=== PATIENT | female | born 1980 | race Caucasian/White ===

== ENCOUNTER → 2016-11-19 | Outpatient (CLI) | payer OTHER ==
[2016-11-19 11:01] LABS: CH 27.3; HDW 2.48; HGB 12.2 gm/dL (11.4-16.0); MCH 28.2 pg (25.0-35.0); MCHC 32.9 g/dL (31.0-37.0); MCV 85.8 fL (80.0-100.0); Mean Platelet Volume 8.4; RBC 4.31 m/uL (3.80-5.40); RDW 15.2 % (11.5-15.5); WBC 7.7 k/uL (3.8-10.6)
[2016-11-19 13:59] LABS: % Iron Saturation 5.9 % (20-50)
== END | disposition home or self-care (01) ==
LOC: LABWHC1 10:25
PROVIDERS: ATTEND Obstetrics & Gynecology
DX: N93.8 Other specified abnormal uterine and vaginal bleeding (principal)
CPT/HCPCS: 36415; 82728; 83540; 83550; 84439; 84443; 85027

== ENCOUNTER 2016-11-27 16:24 | Emergency (ER) | payer OTHER ==
[2016-11-27] MEDS ORDERED: SODIUM CHLORIDE 0.9% 1,000 ML IV ONE (17:28)
[2016-11-27] MEDS ORDERED: ONDANSETRON 4 MG/2 ML VIAL IVP STA (17:28)
[2016-11-27] MEDS ORDERED: diphenhydrAMINE 50 MG/ML 1 ML VIAL IVP STA (17:37)
[2016-11-27] MEDS ORDERED: METOCLOPRAMIDE 5 MG/ML 2 ML VIAL IVP STA (17:37)
[2016-11-27] MEDS ORDERED: KETOROLAC 30 MG/ML 1 ML VIAL IVP STA (17:37)
[2016-11-27 18:34] LABS: Basophils % (A) 1 %; CH 27.1; CHCM 32.7; Eosinophils # (A) 0.2 k/uL (0-0.7); Eosinophils % (A) 3 %; HCT 33.3 % (34.0-46.0); HDW 2.47; Luc # (Auto) 0.16; Luc % (Auto) 2; Lymphocytes # (A) 1.6 k/uL (1.0-4.8); Lymphocytes % (A) 21 %; MCH 27.7 pg (25.0-35.0); MCHC 33.1 g/dL (31.0-37.0); MCV 83.5 fL (80.0-100.0); Mean Platelet Volume 8.3; Monocytes # (A) 0.5 k/uL (0-1.0); Monocytes % (A) 7 %; Neutrophils # (A) 4.9 k/uL (1.3-7.7); Neutrophils % (A) 67 %; RBC 3.98 m/uL (3.80-5.40); RDW 15.1 % (11.5-15.5); WBC 7.4 k/uL (3.8-10.6); WBC (Perox) 7.38
[2016-11-27 18:56] LABS: Anion Gap 12 mmol/L; Blood Urea Nitrogen 16 mg/dL (7-17); Carbon Dioxide 22 mmol/L (22-30); Chloride 107 mmol/L (98-107); Glucose 91 mg/dL (74-99); Non-African American GFR(MDRD) >60 (>60 ml/min/1.73 sqM); Potassium 4.1 mmol/L (3.5-5.1); Sodium 141 mmol/L (137-145)
--- NOTE | 2016-11-27 19:18 | ED ---
Headache HPI - General Chief Complaint: Headache Stated Complaint: Dizziness/Heart Palpitations Mode of arrival: ambulatory Limitations: no limitations - History of Present Illness Initial Comments: 36-year-old female presented for evaluation of headache. She states that her symptoms started today after she donated blood. She also states having associated lightheadedness and mild dizziness. She is currently on her period and she states that she has normal heavy flow. She has chronic anemia which was the necessity for drying her labs. She also states associated nausea. She denies chest pain, shortness breath, syncope, fevers, chills, abnormal menses, dysuria, constipation, diarrhea. - Related Data Home Medications Medication Instructions Recorded Confirmed Dextroamphetamine/Amphetamine 5 mg PO DAILY 11/27/16 11/27/16 [Adderall] Dextroamphetamine/Amphetamine 30 mg PO DAILY 11/27/16 11/27/16 [Adderall] Allergies Allergy/AdvReac Type Severity Reaction Status Date / Time No Known Allergies Allergy Verified 11/27/16 16:35 Review of Systems ROS Statement: Those systems with pertinent positive or pertinent negative responses have been documented in the HPI. ROS Other: All systems not noted in ROS Statement are negative. Constitutional: Denies: fever, chills Eyes: Denies: eye pain, eye discharge, vision change ENT: Denies: ear pain, throat pain, dental pain Respiratory: Denies: cough, dyspnea, wheezes Cardiovascular: Denies: chest pain, palpitations, syncope Endocrine: Denies: fatigue, polydipsia, polyuria Gastrointestinal: Reports: nausea. Denies: abdominal pain, vomiting, diarrhea, constipation, hematemesis, melena, hematochezia Genitourinary: Reports: other (Currently on her period). Denies: urgency, dysuria, hematuria, discharge, abnormal menses Musculoskeletal: Denies: back pain, arthralgia, myalgia Skin: Denies: rash, lesions Neurological: Reports: headache. Denies: weakness, numbness Psychiatric: Denies: anxiety, depression Hematological/Lymphatic: Denies: easy bleeding, easy bruising Past Medical History Additional Past Medical History / Comment(s): anemia History of Any Multi-Drug Resistant Organisms: None Reported Additional Past Surgical History / Comment(s): breast augmentation Past Psychological History: ADD/ADHD Smoking Status: Never smoker Past Alcohol Use History: Rare Past Drug Use History: None Reported General Exam Limitations: no limitations General appearance: alert, in no apparent distress Head exam: Present: atraumatic, normocephalic, normal inspection Eye exam: Present: normal appearance, PERRL, EOMI. Absent: scleral icterus, conjunctival injection, periorbital swelling ENT exam: Present: normal exam, mucous membranes moist Neck exam: Present: normal inspection. Absent: tenderness, meningismus, lymphadenopathy Respiratory exam: Present: normal lung sounds bilaterally. Absent: respiratory distress, wheezes, rales, rhonchi, stridor Cardiovascular Exam: Present: regular rate, normal rhythm, normal heart sounds. Absent: systolic murmur, diastolic murmur, rubs, gallop, clicks GI/Abdominal exam: Present: soft, normal bowel sounds. Absent: distended, tenderness, guarding, rebound, rigid Rectal exam: Present: deferred Extremities exam: Present: normal inspection, full ROM, normal capillary refill. Absent: tenderness, pedal edema, joint swelling, calf tenderness Back exam: Present: normal inspection Neurological exam: Present: alert, oriented X3, CN II-XII intact Psychiatric exam: Present: normal affect, normal mood Skin exam: Present: warm, dry, intact, normal color. Absent: rash Course Vital Signs 11/27/16 11/27/16 11/27/16 16:33 18:45 19:32 Temperature 97.5 F L 98.8 F Pulse Rate 90 73 77 Respiratory 20 20 16 Rate Blood Pressure 167/91 152/91 130/76 O2 Sat by Pulse 99 98 97 Oximetry Medical Decision Making - Medical Decision Making 36-year-old female presented for evaluation of headache, lightheadedness, nausea following blood draw today. She gets a blood draws due to her anemia. She also states that she is currently on her period and has been having heavy flow but this is at her baseline. On physical examination there are no acute abnormalities noted and she has cranial nerves II through XII intact without focal neurologic deficit with normal gait and station. Remainder of the physical exam is benign. Labs obtained revealed no significant abnormalities and after providing patient with Reglan, Toradol, Benadryl, and IV fluids the patient was reevaluated and had resolution of all symptoms. She was informed of all results and that she should follow up with her primary care physician. Discharge instructions and return instructions provided. Patient acknowledged an understanding of all information provided and agreed with this plan of care. - Lab Data Result diagrams: 11/27/16 18:17 11/27/16 18:17 Lab Results 11/27/16 11/27/16 Range/Units 18:17 18:17 WBC 7.4 (3.8-10.6) k/uL RBC 3.98 (3.80-5.40) m/uL Hgb 11.0 L (11.4-16.0) gm/dL Hct 33.3 L (34.0-46.0) % MCV 83.5 (80.0-100.0) fL MCH 27.7 (25.0-35.0) pg MCHC 33.1 (31.0-37.0) g/dL RDW 15.1 (11.5-15.5) % Plt Count 325 (150-450) k/uL Neutrophils % 67 % Lymphocytes % 21 % Monocytes % 7 % Eosinophils % 3 % Basophils % 1 % Neutrophils # 4.9 (1.3-7.7) k/uL Lymphocytes # 1.6 (1.0-4.8) k/uL Monocytes # 0.5 (0-1.0) k/uL Eosinophils # 0.2 (0-0.7) k/uL Basophils # 0.0 (0-0.2) k/uL Sodium 141 (137-145) mmol/L Potassium 4.1 (3.5-5.1) mmol/L Chloride 107 (98-107) mmol/L Carbon Dioxide 22 (22-30) mmol/L Anion Gap 12 mmol/L BUN 16 (7-17) mg/dL Creatinine 0.70 (0.52-1.04) mg/dL Est GFR (MDRD) Af Amer >60 (>60 ml/min/1.73 sqM) Est GFR (MDRD) Non-Af >60 (>60 ml/min/1.73 sqM) Glucose 91 (74-99) mg/dL Calcium 10.0 (8.4-10.2) mg/dL Disposition Clinical Impression: Headache Disposition: HOME SELF-CARE Condition: Stable Instructions: Acute Headache (ED) Referrals: Adam De Souza MD [Primary Care Provider] - 1-2 days Time of Disposition: 19:18
[2016-11-27 19:33] VITALS: BP 130/76; PULSE 77; RESP 16; TEMP 98.8
== END 2016-11-27 19:32 | disposition home or self-care (01) ==
LOC: EC 16:24
DX: R51 Headache (principal); R42 Dizziness and giddiness; R11.0 Nausea; F90.9 Attention-deficit hyperactivity disorder, unspecified type; Z79.899 Other long term (current) drug therapy
CPT/HCPCS: 99283; 96374; 96375 ×2; 96361; 36415; 80048; 85025; J1200; J2765; J1885

== ENCOUNTER → 2016-12-02 | Outpatient (CLI) | payer OTHER ==
--- NOTE | 2016-12-02 13:01 | CT ---
EXAMINATION TYPE: CT abdomen pelvis w con DATE OF EXAM: 12/02/2016 COMPARISON: NONE HISTORY: Patient complains of weakness, dizziness, and possible anemia. Patient denies abdominal/pelv ic complaints at time of study. CT DLP: 346.2 mGycm Automated exposure control for dose reduction was used. CONTRAST: CT scan of the abdomen pelvis is performed with IV Contrast, patient injected with 100 mL of Omnipaqu e 300. FINDINGS- LUNG BASES- No significant abnormality is appreciated. LIVER/GB- No gross abnormality is appreciated. PANCREAS- No gross abnormality is seen. SPLEEN- No gross abnormality is seen. ADRENALS- No gross abnormality is seen. KIDNEYS/BLADDER- no hydronephrosis nephrolithiasis or renal mass. BOWEL- no bowel dilatation. Extent visualized. Colon decompressed and limited in assessment. LYMPH NODES- No greater than 1cm abdominal or pelvic lymph nodes areappreciated. OSSEOUS STRUCTURES- No significant abnormality is seen. OTHER- intrauterine device noted IMPRESSION- 1. No acute process.
== END | disposition home or self-care (01) ==
LOC: RADCTMAIN 10:30
PROVIDERS: ATTEND Family Medicine
DX: R10.9 Unspecified abdominal pain (principal); R10.2 Pelvic and perineal pain
CPT/HCPCS: 74177; Q9967

== ENCOUNTER 2016-12-04 11:03 | Emergency (ER) | payer OTHER ==
[2016-12-04 11:16] VITALS: RESP 18
--- NOTE | 2016-12-04 12:06 | ED ---
General Adult HPI - General Chief complaint: Dizziness Stated complaint: Anemia Time Seen by Provider: 12/04/16 11:42 Source: patient Mode of arrival: EMS Limitations: no limitations - History of Present Illness Initial comments: Patient is a 36-year-old female who presents to the ED via EMS for evaluation of generalized fatigue, lightheaded dizziness and shaking all over. Patient states that 2 weeks ago she began feeling fatigued, she was evaluated in the ER 1 week ago and was diagnosed with anemia. Patient states her hemoglobin at that time was 11 and she was prescribed iron supplementation. Patient states she followed up with her primary care physician had additional labs including a thyroid study which was normal. Patient states that she began taking iron supplementation and for couple days felt a little bit better. A she attempted to go back to work but while at work began feeling very weak and lightheaded. She drove herself to her doctor's office but upon arrival felt very shaky and overall weakness he advised her to come to the emergency department for further evaluation. Patient denies any fevers, chills, heat or cold intolerance, weight change, night sweats. She reports that today she did feel mildly short of breath and experienced some palpitations however she denies any chest pain or exertional symptoms. Patient has no history of DVT or PE, no known family history. She is not on oral contraceptive pills, she is not a smoker, she has no recent long distant travel. She denies any edema in her legs. She has no cardiac history. Patient's family history is concerning for a father who of complications due to a stroke at the age of 63 and a mother who of metastatic breast cancer age of 45. - Related Data Home Medications Medication Instructions Recorded Confirmed Dextroamphetamine/Amphetamine 5 mg PO DAILY 11/27/16 12/04/16 [Adderall] Dextroamphetamine/Amphetamine 30 mg PO DAILY 11/27/16 12/04/16 [Adderall] ALPRAZolam [Xanax] 1 mg PO HS PRN 12/04/16 12/04/16 Ferrous Sulfate [Feosol] 325 mg PO DAILY 12/04/16 12/04/16 Ondansetron Odt [Zofran Odt] 4 mg PO Q12HR PRN 12/04/16 12/04/16 valACYclovir [Valtrex] 500 mg PO DAILY 12/04/16 12/04/16 Allergies Allergy/AdvReac Type Severity Reaction Status Date / Time No Known Allergies Allergy Verified 12/04/16 11:25 Review of Systems ROS Statement: Those systems with pertinent positive or pertinent negative responses have been documented in the HPI. ROS Other: All systems not noted in ROS Statement are negative. Constitutional: Reports: weakness (generalized). Denies: fever, chills, weight change, night sweats Eyes: Denies: vision change ENT: Denies: epistaxis Respiratory: Reports: dyspnea. Denies: cough, wheezes, hemoptysis Cardiovascular: Reports: palpitations. Denies: chest pain, orthopnea, edema, syncope Gastrointestinal: Denies: abdominal pain, nausea, vomiting, diarrhea, constipation, hematemesis, melena, hematochezia Genitourinary: Denies: urgency, dysuria Musculoskeletal: Denies: back pain Skin: Denies: rash, lesions, change in color Neurological: Reports: weakness (generalized), confusion (feels "slowed" mentation ). Denies: headache, paresthesias, abnormal gait, vertigo Psychiatric: Reports: anxiety. Denies: auditory hallucinations, visual hallucinations Hematological/Lymphatic: Denies: easy bleeding, easy bruising, swollen glands Past Medical History Past Medical History: Hyperlipidemia Additional Past Medical History / Comment(s): anemia History of Any Multi-Drug Resistant Organisms: None Reported Additional Past Surgical History / Comment(s): breast augmentation Past Psychological History: ADD/ADHD Smoking Status: Never smoker Past Alcohol Use History: Rare Past Drug Use History: None Reported General Exam Limitations: no limitations General appearance: alert, in no apparent distress Head exam: Present: atraumatic, normocephalic, normal inspection Eye exam: Present: normal appearance, PERRL, EOMI. Absent: scleral icterus, conjunctival injection, periorbital swelling ENT exam: Present: normal exam, mucous membranes moist Neck exam: Present: normal inspection. Absent: tenderness, meningismus, lymphadenopathy Respiratory exam: Present: normal lung sounds bilaterally. Absent: respiratory distress, wheezes, rales, rhonchi, stridor Cardiovascular Exam: Present: normal rhythm, tachycardia, normal heart sounds. Absent: systolic murmur, diastolic murmur, rubs, gallop, clicks GI/Abdominal exam: Present: soft, normal bowel sounds. Absent: distended, tenderness, guarding, rebound, rigid Rectal exam: Present: deferred Extremities exam: Present: normal inspection, full ROM, normal capillary refill , other (warm well perfused, no edema, strong radial and DP/PT pulses). Absent : tenderness, pedal edema, joint swelling, calf tenderness Back exam: Present: normal inspection Neurological exam: Present: alert, oriented X3, CN II-XII intact Psychiatric exam: Present: flat affect Skin exam: Present: warm, dry, intact, normal color. Absent: rash Course Vital Signs 12/04/16 12/04/16 12/04/16 11:12 12:16 12:58 Temperature 97.5 F L Pulse Rate 109 H 95 102 H Respiratory 18 18 18 Rate Blood Pressure 167/96 161/90 161/90 O2 Sat by Pulse 97 99 99 Oximetry 12/04/16 12/04/16 12/04/16 13:56 14:10 14:29 Temperature 98.3 F 98.3 F Pulse Rate 90 93 93 Respiratory 18 18 18 Rate Blood Pressure 154/91 142/81 142/81 O2 Sat by Pulse 98 98 98 Oximetry - Reevaluation(s) Reevaluation #1: Patient was reevaluated, heart rate improved to 90. Oxygen saturation 100% on room air. Patient remains mildly hypertensive with blood pressure 160 systolic. Laboratory discussed with the patient who states relief that her anemia is improving but does feel that she is getting worse. Paged patient's PCP for further discussion of patient care 12/04/16 13:18 Reevaluation #2: Patient care was discussed with patient's PCP who recommends a urine drug screen be obtained, he agrees with discharge home with plan for follow-up with PCP as well as neurology referral. PCP will be available for walk-in appointments from noon to 8 PM tomorrow and all day Thursday and Thursday. Patient was advised this. 12/04/16 13:49 EKG Findings - EKG Results: EKG: interpreted by LEONEL GILLESPIE, sinus rhythm, normal axis, normal QRS, normal ST/ T, no acute changes Medical Decision Making - Medical Decision Making Patient was seen and evaluated, history obtained from patient and medical record Labs, EKG ordered EKG normal sinus rhythm with no acute findings Labs with improved hemoglobin 12.1, no further anemia No other acute findings on laboratory evaluation Laboratory results were discussed with the patient as well as her primary care physician. Patient expressing concern that there is been no definitive diagnosis of why she is feeling fatigued. I discussed with the patient's primary care physician who expresses concern that this may be related to psychiatric or toxicologic phenomenon. He requested a urine drug screen be obtained. Urine drug screen was ordered I again discussed with the patient all of her findings. All questions pertaining To care were answered to the best of my abilities. I advised the patient that there was nothing identified in the emergency department workup that indicates any indication for admission to the hospital or requiring any and immediate or emergent interventions. Patient expresses a level of disappointment in not having a diagnosis, however she is agreeable for plan with discharge with follow-up with her primary care physician. I advised her that her primary care physician will see her anytime this weekend. Primary care physician is at office from noon until 8 PM tomorrow as well as over the weekend. - Lab Data Result diagrams: 12/04/16 12:15 12/04/16 12:15 Lab Results 12/04/16 12/04/16 12/04/16 Range/Units 12:15 12:15 12:15 WBC 6.5 (3.8-10.6) k/uL RBC 4.33 (3.80-5.40) m/uL Hgb 12.1 (11.4-16.0) gm/dL Hct 36.8 (34.0-46.0) % MCV 85.0 (80.0-100.0) fL MCH 27.9 (25.0-35.0) pg MCHC 32.8 (31.0-37.0) g/dL RDW 15.9 H (11.5-15.5) % Plt Count 357 (150-450) k/uL Neutrophils % 70 % Lymphocytes % 21 % Monocytes % 6 % Eosinophils % 2 % Basophils % 1 % Neutrophils # 4.5 (1.3-7.7) k/uL Lymphocytes # 1.4 (1.0-4.8) k/uL Monocytes # 0.4 (0-1.0) k/uL Eosinophils # 0.1 (0-0.7) k/uL Basophils # 0.0 (0-0.2) k/uL PT 11.6 (9.0-12.0) sec INR 1.2 H (<1.2) APTT 22.3 (22.0-30.0) sec D-Dimer 0.30 (<0.60) mg/L FEU Sodium 140 (137-145) mmol/L Potassium 4.4 (3.5-5.1) mmol/L Chloride 104 (98-107) mmol/L Carbon Dioxide 27 (22-30) mmol/L Anion Gap 9 mmol/L BUN 14 (7-17) mg/dL Creatinine 0.77 (0.52-1.04) mg/dL Est GFR (MDRD) Af Amer >60 (>60 ml/min/1.73 sqM) Est GFR (MDRD) Non-Af >60 (>60 ml/min/1.73 sqM) Glucose 90 (74-99) mg/dL Calcium 9.9 (8.4-10.2) mg/dL Magnesium 1.7 (1.6-2.3) mg/dL Urine Color Urine Appearance (Clear) Urine pH (5.0-8.0) Ur Specific [place] (1.001-1.035) Urine Protein (Negative) Urine Glucose (UA) (Negative) Urine Ketones (Negative) Urine Blood (Negative) Urine Nitrite (Negative) Urine Bilirubin (Negative) Urine Urobilinogen (<2.0) mg/dL Ur Leukocyte Esterase (Negative) Urine RBC (0-5) /hpf Urine WBC (0-5) /hpf Ur Squamous Epith Cells (0-4) /hpf Urine Bacteria (None) /hpf Urine Mucus (None) /hpf Urine HCG, Qual (Not Detectd) Urine Opiates Screen (NotDetected) Ur Oxycodone Screen (NotDetected) Urine Methadone Screen (NotDetected) Ur Propoxyphene Screen (NotDetected) Ur Barbiturates Screen (NotDetected) U Tricyclic Antidepress (NotDetected) Ur Phencyclidine Scrn (NotDetected) Ur Amphetamines Screen (NotDetected) U Methamphetamines Scrn (NotDetected) U Benzodiazepines Scrn (NotDetected) Urine Cocaine Screen (NotDetected) U Marijuana (THC) Screen (NotDetected) 12/04/16 12/04/16 12/04/16 Range/Units 12:15 12:15 12:15 WBC (3.8-10.6) k/uL RBC (3.80-5.40) m/uL Hgb (11.4-16.0) gm/dL Hct (34.0-46.0) % MCV (80.0-100.0) fL MCH (25.0-35.0) pg MCHC (31.0-37.0) g/dL RDW (11.5-15.5) % Plt Count (150-450) k/uL Neutrophils % % Lymphocytes % % Monocytes % % Eosinophils % % Basophils % % Neutrophils # (1.3-7.7) k/uL Lymphocytes # (1.0-4.8) k/uL Monocytes # (0-1.0) k/uL Eosinophils # (0-0.7) k/uL Basophils # (0-0.2) k/uL PT (9.0-12.0) sec INR (<1.2) APTT (22.0-30.0) sec D-Dimer (<0.60) mg/L FEU Sodium (137-145) mmol/L Potassium (3.5-5.1) mmol/L Chloride (98-107) mmol/L Carbon Dioxide (22-30) mmol/L Anion Gap mmol/L BUN (7-17) mg/dL Creatinine (0.52-1.04) mg/dL Est GFR (MDRD) Af Amer (>60 ml/min/1.73 sqM) Est GFR (MDRD) Non-Af (>60 ml/min/1.73 sqM) Glucose (74-99) mg/dL Calcium (8.4-10.2) mg/dL Magnesium (1.6-2.3) mg/dL Urine Color Light Yellow Urine Appearance Clear (Clear) Urine pH 7.5 (5.0-8.0) Ur Specific [place] 1.006 (1.001-1.035) Urine Protein Negative (Negative) Urine Glucose (UA) Negative (Negative) Urine Ketones Negative (Negative) Urine Blood Negative (Negative) Urine Nitrite Negative (Negative) Urine Bilirubin Negative (Negative) Urine Urobilinogen <2.0 (<2.0) mg/dL Ur Leukocyte Esterase Moderate H (Negative) Urine RBC <1 (0-5) /hpf Urine WBC 7 H (0-5) /hpf Ur Squamous Epith Cells 4 (0-4) /hpf Urine Bacteria Rare H (None) /hpf Urine Mucus Rare H (None) /hpf Urine HCG, Qual Not Detected (Not Detectd) Urine Opiates Screen Not Detected (NotDetected) Ur Oxycodone Screen Not Detected (NotDetected) Urine Methadone Screen Not Detected (NotDetected) Ur Propoxyphene Screen Not Detected (NotDetected) Ur Barbiturates Screen Not Detected (NotDetected) U Tricyclic Antidepress Not Detected (NotDetected) Ur Phencyclidine Scrn Not Detected (NotDetected) Ur Amphetamines Screen Detected H (NotDetected) U Methamphetamines Scrn Not Detected (NotDetected) U Benzodiazepines Scrn Detected H (NotDetected) Urine Cocaine Screen Not Detected (NotDetected) U Marijuana (THC) Screen Not Detected (NotDetected) Disposition Clinical Impression: Fatigue Disposition: HOME SELF-CARE Instructions: Fatigue (ED) Referrals: Adam De Souza MD [Primary Care Provider] - 1-2 days Rohan Watson MD [STAFF PHYSICIAN] - 1-2 days Time of Disposition: 14:11
[2016-12-04 12:30] LABS: Basophils % (A) 1 %; CH 27.5; CHCM 32.5; Eosinophils # (A) 0.1 k/uL (0-0.7); Eosinophils % (A) 2 %; HCT 36.8 % (34.0-46.0); HDW 2.27; HGB 12.1 gm/dL (11.4-16.0); Luc # (Auto) 0.08; Luc % (Auto) 1; Lymphocytes # (A) 1.4 k/uL (1.0-4.8); Lymphocytes % (A) 21 %; MCH 27.9 pg (25.0-35.0); MCHC 32.8 g/dL (31.0-37.0); Mean Platelet Volume 7.5; Monocytes # (A) 0.4 k/uL (0-1.0); Monocytes % (A) 6 %; Neutrophils # (A) 4.5 k/uL (1.3-7.7); Neutrophils % (A) 70 %; RBC 4.33 m/uL (3.80-5.40); RDW 15.9 % (11.5-15.5); WBC 6.5 k/uL (3.8-10.6); WBC (Perox) 6.87
[2016-12-04 12:33] LABS: Appearance,Urine Clear (Clear); Bacteria,Urine Rare /hpf; Bilirubin,Urine Negative (Negative); Glucose,Urine (UA) Negative (Negative); Ketones,Urine Negative (Negative); Leukocyte Esterase,Urine Moderate (Negative); Mucus,Urine Rare /hpf; Nitrite,Urine Negative (Negative); PH, Urine 7.5 (5.0-8.0); Particle Count 4001; Protein,Urine Negative (Negative); RBC,Urine <1 /hpf (0-5); Specific Gravity,Urine 1.006 (1.001-1.035); Squamous Epithelial Cell,Urine 4 /hpf (0-4); UA Billing (MACRO vs. MICRO) MICRO; Urobilinogen,Urine <2.0 mg/dL (<2.0); WBC,Urine 7 /hpf (0-5)
[2016-12-04 12:38] LABS: Anion Gap 9 mmol/L; Blood Urea Nitrogen 14 mg/dL (7-17); Calcium 9.9 mg/dL (8.4-10.2); Carbon Dioxide 27 mmol/L (22-30); Chloride 104 mmol/L (98-107); Glucose 90 mg/dL (74-99); Magnesium 1.7 mg/dL (1.6-2.3); Non-African American GFR(MDRD) >60 (>60 ml/min/1.73 sqM); Potassium 4.4 mmol/L (3.5-5.1); Sodium 140 mmol/L (137-145)
[2016-12-04 13:00] LABS: INR 1.2 (<1.2); Partial Thromboplastin Time 22.3 sec (22.0-30.0); Prothrombin Time 11.6 sec (9.0-12.0)
[2016-12-04 14:12] VITALS: BP 142/81; PULSE 93; TEMP 98.3
== END 2016-12-04 14:29 | disposition home or self-care (01) ==
LOC: EC 11:03
DX: R53.83 Other fatigue (principal); D64.9 Anemia, unspecified; F90.9 Attention-deficit hyperactivity disorder, unspecified type; Z79.899 Other long term (current) drug therapy
CPT/HCPCS: 36415; 80048; 80306; 81001; 81025; 83735; 85025; 85379; 85610; 85730; 93005; 99284

== ENCOUNTER → 2016-12-08 | Outpatient (CLI) | payer OTHER ==
--- NOTE | 2016-12-08 20:16 | MR ---
EXAMINATION TYPE: MR brain wo/w con DATE OF EXAM: 12/08/2016 COMPARISON: NONE HISTORY: 36-year-old female unspecified Optic neuritis TECHNIQUE: Multiplanar, multisequence images of the brain and brainstem were acquired before and aft er administration of 10 mL IV MultiHance. Diffusion weighted imaging is performed. FINDINGS: No evidence for acute infarction, hemorrhage, mass, mass effect, midline shift, herniation, effacemen t of basal cisterns, or extra-axial fluid collection. The ventricles and sulci are age-appropriate. Major intracranial flow voids are intact. T2/FLAIR weighted sequences show no white matter signal abnormality. Midline structures demonstrate normal morphology. The craniocervical junction is normal. Post contrast images demonstrate no evidence of pathologic enhancement. Dural venous sinuses are pat ent. The visualized sinuses are clear and the globes are intact. IMPRESSION: No intracranial abnormality seen.
== END | disposition home or self-care (01) ==
LOC: RADMRIMAIN 15:42
PROVIDERS: ATTEND Family Medicine
DX: H46.9 Unspecified optic neuritis (principal)
CPT/HCPCS: 70553; A9577

== ENCOUNTER → 2017-07-15 | Outpatient (CLI) | payer OTHER ==
[2017-07-15 13:57] LABS: Basophils % (A) 1 %; Eosinophils # (A) 0.1 k/uL (0-0.7); Eosinophils % (A) 1 %; HCT 40.8 % (34.0-46.0); HGB 13.4 gm/dL (11.4-16.0); Lymphocytes # (A) 1.8 k/uL (1.0-4.8); Lymphocytes % (A) 28 %; MCH 30.3 pg (25.0-35.0); MCHC 32.7 g/dL (31.0-37.0); MCV 92.5 fL (80.0-100.0); Mean Platelet Volume 8.3; Monocytes # (A) 0.4 k/uL (0-1.0); Monocytes % (A) 6 %; Neutrophils # (A) 4.1 k/uL (1.3-7.7); Neutrophils % (A) 63 %; Platelet Count 263 k/uL (150-450); RBC 4.41 m/uL (3.80-5.40); RDW 13.1 % (11.5-15.5); WBC 6.4 k/uL (3.8-10.6)
[2017-07-15 14:19] LABS: ALT 31 U/L (9-52); AST 25 U/L (14-36); Albumin 4.6 g/dL (3.5-5.0); Alkaline Phosphatase 50 U/L (38-126); Anion Gap 12 mmol/L; Blood Urea Nitrogen 16 mg/dL (7-17); Calcium 9.9 mg/dL (8.4-10.2); Carbon Dioxide 26 mmol/L (22-30); Chloride 101 mmol/L (98-107); Creatine Kinase 33 U/L (30-135); Glucose 115 mg/dL (74-99); Potassium 4.3 mmol/L (3.5-5.1); Sodium 139 mmol/L (137-145); Total Bilirubin 0.5 mg/dL (0.2-1.3); Total Protein 7.8 g/dL (6.3-8.2)
[2017-07-15 14:32] LABS: T4, Free (Free Thyroxine) 1.02 ng/dL (0.78-2.19)
[2017-07-15 15:17] LABS: Erythrocyte Sedimentation Rate 15 mm/hr (0-20)
[2017-07-15 18:43] LABS: Iron Saturation 13.28 (12.00-45.00)
[2017-07-15 18:50] LABS: Vitamin D 25 Hydroxy 21.5 ng/mL (30.0-100.0)
[2017-07-16 06:55] LABS: EBV - EA (IgG) <5.0 U/mL (<9.0); EBV - VCA IgM <10.0 U/mL (<36.0)
== END | disposition home or self-care (01) ==
LOC: LABWHC1 12:35
PROVIDERS: ATTEND Family Medicine
DX: A60.00 Herpesviral infection of urogenital system, unspecified (principal); M62.89 Other specified disorders of muscle; G93.3 Postviral and related fatigue syndromes; Z86.2 Personal history of diseases of the blood and blood-forming organs and certain disorders involving the immune mechanism
CPT/HCPCS: 36415; 80053; 82306; 82550; 82607; 82728; 83540; 83550; 83735; 84439; 84443; 85025; 85652; 86038; 86663; 86664; 86665; 86694; 86695; 86696

== ENCOUNTER → 2021-12-26 | Outpatient (CLI) | payer OTHER ==
--- NOTE | 2021-12-26 09:41 | MM ---
Reason for Exam: Screening (asymptomatic). Patient History: Menarche at age 11. First Full-Term at age 17. 2000, Bilateral Implants. Sister had breast cancer, age 40. Mother had breast cancer, age 35. Last menstrual period: 12/09/2021 Risk Values: Sarah 5 year model risk: 3.4%. NCI Lifetime model risk: 38.7%. Prior Study Comparison: No prior studies available for comparison. Tissue Density: The breast tissue is heterogeneously dense. This may lower the sensitivity of mammography. Findings: Analyzed By CAD. Bilateral subpectoral implants. There is no suspicious group of microcalcifications or distortion in either breast. Overall Assessment: Benign, BI-RAD 2 Management: Screening Mammogram of both breasts in 1 year. A clinical breast exam by your physician is recommended on an annual basis and results should be correlated with mammographic findings. Electronically signed and approved by: Chidi Bonilla M.D.
== END | disposition home or self-care (01) ==
LOC: RADMAMWWP 08:16
PROVIDERS: ATTEND Obstetrics & Gynecology
DX: Z12.31 Encounter for screening mammogram for malignant neoplasm of breast (principal); Z80.3 Family history of malignant neoplasm of breast; Z85.3 Personal history of malignant neoplasm of breast
CPT/HCPCS: 77063; 77067

== ENCOUNTER → 2021-12-27 | Outpatient (CLI) | payer OTHER ==
--- NOTE | 2021-12-27 14:54 | US ---
EXAMINATION TYPE: US transvaginal DATE OF EXAM: 12/27/2021 COMPARISON: NONE CLINICAL HISTORY: N92.0 EXCESSIVE AND FREQUENT MENSTRUATION. TECHNIQUE: Transvaginal (TV). Transabdominal sonographic images of the pelvis were acquired. Trans vaginal sonographic images were medically necessary to better assess the following anatomy: Date of LMP: 12/07/2021 EXAM MEASUREMENTS: Uterus: 8.1 x 4.2 x 5.8 cm Endometrial Stripe: 1.1 cm Right Ovary: 2.7 x 1.7 x 2.0 cm Left Ovary: 2.9 x 2.1 x 2.4 cm 1. Uterus: Anteverted wnl 2. Endometrium: wnl 3. Right Ovary: wnl 4. Left Ovary: complex lesion measures 1.8 x 1.2 x 1.5 cm. 5. Bilateral Adnexa: wnl 6. Posterior cul-de-sac: no free fluid IMPRESSION: 1. Complex hypoechoic area within the left ovary measuring 1.8 x 1.2 x 1.5 cm may be a complex cyst. Follow-up is recommended.
== END | disposition home or self-care (01) ==
LOC: RADUSWWP 07:43
PROVIDERS: ATTEND Obstetrics & Gynecology
DX: N92.0 Excessive and frequent menstruation with regular cycle (principal)
CPT/HCPCS: 76830

== ENCOUNTER → 2022-01-17 | Outpatient (CLI) | payer OTHER ==
[2022-01-17 14:35] LABS: Basophils # (A) 0.06 X 10*3/uL (0.00-0.10); Basophils % (A) 1.2 %; Eosinophils # (A) 0.16 X 10*3/uL (0.04-0.35); Eosinophils % (A) 3.1 %; HCT 42.2 % (37.2-46.3); HGB 14.1 g/dL (12.0-15.0); Immature Grans, Automated 0.2 %; Lymphocytes # (A) 1.45 X 10*3/uL (0.90-5.00); Lymphocytes % (A) 28.2 %; MCH 31.8 pg (27.0-32.0); MCHC 33.4 g/dL (32.0-37.0); MCV 95.3 fL (80.0-97.0); Mean Platelet Volume 11.8 fL (9.5-12.2); Monocytes # (A) 0.53 X 10*3/uL (0.20-1.00); Monocytes % (A) 10.3 %; NRBC Per 100 WBC 0 /100 WBCS (0.0-0.0); Neutrophils # (A) 2.94 X 10*3/uL (1.80-7.70); Platelet Count 257 X 10*3/uL (140-440); RBC 4.43 X 10*6/uL (4.10-5.20); RDW 11.8 % (11.5-14.5); WBC 5.15 X 10*3/uL (4.50-10.00)
== END | disposition home or self-care (01) ==
LOC: LABPAT 08:54
PROVIDERS: ATTEND Obstetrics & Gynecology
DX: Z01.812 Encounter for preprocedural laboratory examination (principal)
CPT/HCPCS: 36415; 85025

== ENCOUNTER 2022-01-28 05:48 | Day surgery (SDC) | payer OTHER ==
[2022-01-23 15:23] VITALS: BMI 21.7
--- NOTE | 2022-01-27 07:28 | P.HPOB ---
History of Present Illness H&P Date: 01/27/22 Chief Complaint: Menorrhagia, family planning This patient is a pleasant 42-year-old 3 para 3 female who presented to me with complaints of long-standing menorrhagia requesting endometrial ablation and also requesting permanent sterilization. Patient states that her menstrual cycles are monthly but they are heavy changing the all through tampons every hour for 2 days when they're very heavy and also painful. Patient is requesting endometrial ablation for this. Patient also has requested a tubal ligation because she desires no further pregnancies. Review of Systems Genitourinary: Reports as per HPI, Reports menorrhagia Menstruation: Reports as per HPI, Reports period heavy Past Medical History Past Medical History: Hyperlipidemia Additional Past Medical History / Comment(s): anemia History of Any Multi-Drug Resistant Organisms: None Reported Past Surgical History: Breast Surgery Additional Past Surgical History / Comment(s): breast augmentation Past Anesthesia/Blood Transfusion Reactions: No Reported Reaction Past Psychological History: No Psychological Hx Reported Smoking Status: Former smoker Past Alcohol Use History: None Reported Past Drug Use History: None Reported - Past Family History Mother Family Medical History: Cancer Additional Family Medical History / Comment(s): BREAST Sister(s) Family Medical History: Cancer Additional Family Medical History / Comment(s): BREAST Son(s) Family Medical History: Cancer Additional Family Medical History / Comment(s): THYROID Medications and Allergies Home Medications Medication Instructions Recorded Confirmed Type Dextroamphetamine/Amphetamine 30 mg PO DAILY 11/27/16 01/23/22 History [Adderall] ALPRAZolam [Xanax] 0.5 mg PO HS 01/23/22 01/23/22 History Allergies Allergy/AdvReac Type Severity Reaction Status Date / Time No Known Allergies Allergy Verified 01/23/22 15:12 Exam - OBG Physical Exam Abdomen: bowel sounds normal, no diffuse tenderness, no bruit present, no guarding noted, no hepatomegaly, no splenomegaly, no mass Vulva: both: normal Vagina: normal moisture, no discharge Cervix: no lesion, no discharge Uterus: normal size, normal contour Results Ultrasound on December 27 showed normal uterus and endometrium. Assessment and Plan Assessment: This is a pleasant 42-year-old 3 para 3 female with long-standing menorrhagia and requesting permanent sterilization. Plan is hysteroscopy, D&C, NovaSure endometrial ablation, and laparoscopic bilateral fallopian tube cauterization. Patient understands a tubal ligation is considered permanent however there is a failure rate of less than 5 per thousand procedures done. She understands if she does become she is a 50% chance of tubal or an ectopic . I also did discuss the risks of the surgery with the patient including risks of infection, bleeding, possible injury to bowel, bladder, vessels, and/or other organs, and we also discussed the risk of uterine perforation and/or thermal injury. All the patient's questions are answered and a written consent is obtained. (1) Menorrhagia Status: Acute Code(s): N92.0 - EXCESSIVE AND FREQUENT MENSTRUATION WITH REGULAR CYCLE SNOMED Code(s): 203676271 (2) Family planning Status: Acute Code(s): Z30.09 - ENCOUNTER FOR OT GENERAL CNSL AND ADVICE ON CONTRACEPTION SNOMED Code(s): 991183990
[~2022-01-28 05:48] MED LIST: DEXAMETHASONE SOD PHOSPHATE 4 MG/ML 1 ML VIAL IV ONE; LACTATED RINGERS 1,000 ML IV SCH; LIDOCAINE 1% (10MG/ML) FOR IV START INTRADERMA PRN; ONDANSETRON 4 MG/2 ML VIAL IVP ONE; Pre Op ABX Message 1 EACH MISC MISCELLANE ONE
[2022-01-28] MEDS ORDERED: MIDAZOLAM 2 MG/2 ML VIAL ONE (06:54)
[2022-01-28] MEDS ORDERED: SUCCINYLCHOLINE CHLORIDE 200 MG/10 ML VIAL IV ONE (06:54)
[2022-01-28] MEDS ORDERED: GLYCOPYRROLATE 0.2 MG/ML 2 ML VIAL ONE (06:54)
[2022-01-28] MEDS ORDERED: ROCURONIUM 10 MG/ML (5 ML VIAL) IV ONE (06:54)
[2022-01-28] MEDS ORDERED: KETOROLAC 15 MG/ML 1 ML VIAL ONE (06:54)
[2022-01-28] MEDS ORDERED: LIDOCAINE 2% INJ 20 MG/ML (2 ML VIAL) ONE (06:54)
[2022-01-28] MEDS ORDERED: fentaNYL (PF) 50 MCG/ML 2 ML AMP ONE (06:54)
[2022-01-28] MEDS ORDERED: NEOSTIGMINE 1 MG/ML 10 ML VIAL ONE (06:54)
[2022-01-28] MEDS ORDERED: PROPOFOL 10 MG/ML 20 ML VIAL IV ONE (06:54)
[2022-01-28] MEDS ORDERED: HYDROmorphone 0.5 MG/0.5 ML SYRINGE IVP PRN (07:00)
[2022-01-28] MEDS ORDERED: BUPIVACAINE (PF) 0.5% 30 ML VIAL SQ ONE (07:37)
--- NOTE | 2022-01-28 07:54 | P.OP ---
Date of Procedure: 01/28/22 Preoperative Diagnosis: #1: Multi parity desires permanent sterilization. #2: Menorrhagia Postoperative Diagnosis: Same Procedure(s) Performed: #1: Laparoscopic bilateral fallopian tube cauterization. #2: Hysteroscopy. 3: Dilation and curettage. #4: NovaSure endometrial ablation Anesthesia: KAROLINE Surgeon: Collin Olson Estimated Blood Loss (ml): 20 Urine output (ml): 10 Pathology: other (Uterine curettings) Condition: stable Disposition: PACU Indications for Procedure: Please see dictated H&P for intimate details of this patient's admission. In brief summary this pleasant 42-year-old 3 para 3 female who presented to me requesting laparoscopic tubal cauterization for permanent sterilization and also requesting endometrial ablation for menorrhagia. Patient understands a tubal ligation is considered permanent however there is a failure rate of approximately less than 5 per thousand procedures done. She also understands that if she becomes she is a 50% chance of a tubal or an ectopic . Patient understands laparoscopic surgery and apparently has risks including risks of infection, bleeding, possible injury bowel, bladder, vessels, and/or other organs. She also understands her alternatives to the surgery. Also discussed the risk of NovaSure endometrial ablation and again all of her questions are answered and a written consent obtained. Operative Findings: This patient normal appearing uterus, tubes, ovaries. The uterine cavity appeared normal as well Description of Procedure: This patient is taken to the operating room where she is laid in the supine position. She subsequently undergoes general endotracheal anesthesia without incident. With an adequate level of anesthesia she has abdominal and vaginal prep and drape. The vaginal speculum was placed in the acorn cannula is attached to the Allis clamp of the cervix for manipulation. [place] [address] catheter is placed in the bladder for drainage. First go up above and make a 10 mm infraumbilical incision. Through this a 10 mm blade-less optical trochar is placed. With peritoneal placement confirmed, pneumoperitoneum was then created to 12 mm of carbon dioxide gas. With this done a 5 mm incision is made approximately 2 finger breaths above the symphysis pubis. Using a 5 mm blade- less trocar, peritoneal placement is achieved. Using a blunt probe I then visualized the uterus, tubes and ovaries. All appears normal. At this point I take a bipolar cautery and grasped the left fallopian tube approximately 4 cm from the cornual insertion. Proximate to 3 cm segment of the tube was then completely cauterized with bipolar cautery and as demarcated by the volt meter. Similar technique is done on the right side with similar results. With this done and this part of the procedure is ended. The lower trochars removed. All appears hemostatic. The upper trochars removed after the pneumoperitoneum is reduced. Incisions are then closed using a 4-0 Vicryl, Steri-Strips and sterile dressing. After percent Marcaine is placed for postoperative pain control. Then good on below remove the acorn cannula an Allis clamp. The Allis clamp is replaced on the anterior lip of the cervix. The uterus is then sounded to 7-1/2 cm. Gentle dilation is done to allow the hysteroscope easily uterine cavity. Hysteroscopy is performed uterine cavity appears normal measured at a length of 5.5 cm. Gentle dilation is then done to allow a small curette easily uterine cavity 4 quadrant curettage is then done. With this done the NovaSure device is then opened. It is placed at a length of 5.5 cm is then seated in place and opens to a width of 4.3 cm. After passing the cavity integrity test is enabled at 130 W setting for 60 seconds. NovaSure device is then removed. Hysteroscopy is then performed again and the entire cavity appears to be ablated up to the endocervix. This done the procedure is ended. The Allis clamp and weighted speculum were removed. All counts are correct 3. There are no complications. Patient is awakened from anesthesia and taken recovery room satisfactory condition.
[2022-01-28 07:57] VITALS: TEMP 97
[2022-01-28] MEDS ORDERED: LACTATED RINGERS 1,000 ML IV ONE (08:51)
[2022-01-28] MEDS ORDERED: Acetaminophen-Codeine 300-30mg TAB ONE (09:17)
[2022-01-28] MEDS ORDERED: Acetaminophen-Codeine 300-30mg TAB PO ONE (09:25)
[2022-01-28 10:22] VITALS: BP 119/75; PULSE 64; RESP 15
== END 2022-01-28 10:54 | disposition home or self-care (01) ==
LOC: OR 05:48
PROVIDERS: ATTEND Obstetrics & Gynecology
DX: Z30.2 Encounter for sterilization (principal); Z30.09 Encounter for other general counseling and advice on contraception; N85.00 Endometrial hyperplasia, unspecified; N92.0 Excessive and frequent menstruation with regular cycle; F41.9 Anxiety disorder, unspecified; E78.5 Hyperlipidemia, unspecified; D64.9 Anemia, unspecified; Z98.51 Tubal ligation status; Z98.890 Other specified postprocedural states; Z87.891 Personal history of nicotine dependence; Z80.3 Family history of malignant neoplasm of breast; Z80.8 Family history of malignant neoplasm of other organs or systems; Z79.899 Other long term (current) drug therapy
CPT/HCPCS: 58670; 58563; 81025; 88305; J2250; J0330; J1100; J2710; J2405; J3010; J1885; J2704; J2001

== ENCOUNTER → 2024-10-07 | Outpatient (CLI) | payer OTHER ==
[2024-10-07 15:39] LABS: Estradiol 72.8 pg/mL; Testosterone 23.1 ng/dL (9.01-47.94)
[2024-10-07 16:03] LABS: Follicle Stimulating Hormone 8.6 mIU/mL
== END | disposition home or self-care (01) ==
LOC: LABWHC1 11:23
PROVIDERS: ATTEND Nurse Practitioner Family
DX: N95.1 Menopausal and female climacteric states (principal); Z86.2 Personal history of diseases of the blood and blood-forming organs and certain disorders involving the immune mechanism
CPT/HCPCS: 36415; 82607; 82670; 83001; 83002; 84144; 84403

== ENCOUNTER → 2024-11-24 | Outpatient (CLI) | payer OTHER ==
--- NOTE | 2024-11-24 18:55 | MM ---
Reason for Exam: Screening (asymptomatic). Last mammogram was performed 2 year(s) and 10 month(s) ago. Patient History: Menarche at age 11. First Full-Term at age 17. 2000, Bilateral Implants. Sister had breast cancer, age 40. Mother had breast cancer, age 35. Risk Values: Monica 5 year model risk: 4.1%. NCI Lifetime model risk: 37.7%. Prior Study Comparison: 12/26/2021 Bilateral MG 3D screen mammo imp/cad., [facility]. Tissue Density: The breasts are heterogeneously dense, which may obscure small masses. Findings: Analyzed By CAD. Bilateral retropectoral silicone implants. Areas of asymmetric density appears similar. There is no suspicious group of microcalcifications or new suspicious mass in either breast. Overall Assessment: Benign, BI-RAD 2 Management: Screening Mammogram of both breasts in 1 year. SEE NOTE BELOW IN REGARDS TO THE PATIENT'S INCREASED 5 YEAR MONICA SCORE AND INCREASED LIFETIME RISK SCORE. IN ADDITION, GIVEN DENSE TISSUES, CONSIDERATION CAN BE GIVEN TO SUPPLEMENTARY SCREENING WITH BREAST ULTRASOUND. Patient should continue monthly self-breast exams. A clinical breast exam by your physician is recommended on an annual basis. This exam should not preclude additional follow-up of suspicious palpable abnormalities. Note on Monica scores and lifetime risk: 1. A Monica score greater than 3% is considered moderate risk. If this is the case, consider specialist referral to assess eligibility for a risk reducing agent. 2. If overall lifetime risk for the development of breast cancer is 20% or higher, the patient may qualify for future screening with alternating mammogram and breast MRI. [facility], , 11/24/2024 6:52 PM. Electronically signed and approved by: Jennifer Bird M.D. Radiologist
== END | disposition home or self-care (01) ==
LOC: RADMAMWWP 15:35
PROVIDERS: ATTEND Nurse Practitioner Family
DX: Z12.31 Encounter for screening mammogram for malignant neoplasm of breast (principal); F52.0 Hypoactive sexual desire disorder; R92.333 Mammographic heterogeneous density, bilateral breasts; Z98.82 Breast implant status; Z80.3 Family history of malignant neoplasm of breast
CPT/HCPCS: 77063; 77067; 84270; 84402; 84403